=== PATIENT | male | born 1985 | race Caucasian/White ===

== ENCOUNTER 2023-10-20 14:33 | Inpatient (IN) | payer OTHER ==
[2023-10-20 15:05] VITALS: BMI 42.8
[2023-10-20] MEDS ORDERED: NALOXONE HCL (KLOXXADO) 8 MG SPRAY NS PRN (15:30)
[2023-10-20] MEDS ORDERED: COLLOIDAL OATMEAL 1 BAR EACH TP PRN (15:30)
[2023-10-20] MEDS ORDERED: MAG HYDROX/AL HYDROX/SIMETH 30 ML UNIT-DOSE CUP PO PRN (15:30)
[2023-10-20] MEDS ORDERED: IBUPROFEN 600 MG TABLET (FP) PO PRN (15:30)
[2023-10-20] MEDS ORDERED: IBUPROFEN 400 MG TABLET (FP) PO PRN (15:30)
[2023-10-20] MEDS ORDERED: BENZOCAINE/MENTHOL (CHLORASEPTIC ) LOZENGE MM PRN (15:30)
[2023-10-20] MEDS ORDERED: POLYETHYLENE GLYCOL (HEALTHYLAX) 3350 17 GM PACKET PO PRN (15:30)
[2023-10-20] MEDS ORDERED: ACETAMINOPHEN 325 MG TABLET (FP) PO PRN (15:30)
[2023-10-20] MEDS ORDERED: LOPERAMIDE HCL 2 MG CAPSULE PO PRN (15:30)
[2023-10-20] MEDS ORDERED: guaiFENesin 600 MG TABLET.ER (FP) PO PRN (15:30)
[2023-10-20] MEDS ORDERED: hydrOXYzine PAMOATE 25 MG CAPSULE (FP) PO PRN (15:30)
[2023-10-20] MEDS ORDERED: NALOXONE HCL 0.4 MG/ML VIAL IM PRN (15:30)
[2023-10-20] MEDS ORDERED: MAGNESIUM HYDROX 2400MG/30ML ORAL SUSPENSION 30 ML CUP PO PRN (15:30)
[2023-10-20] MEDS ORDERED: BENZONATATE 200 MG CAPSULE PO PRN (15:30)
[2023-10-20] MEDS ORDERED: PRENATAL VITAMINS W/ FOLIC ACID TABLET (FP) PO ONE (17:30)
[2023-10-20] MEDS: PRENATAL VITAMINS W/ FOLIC ACID TABLET (FP) PO SCH (17:35)
[2023-10-20] MEDS: NICOTINE 7 MG/24 HOURS TOPICAL PATCH TD SCH (17:35)
[2023-10-20] MEDS ORDERED: TUBERCULIN PPD 5 TU/0.1ML SYRINGE (IN PATIENT USE ONLY) ID ONE (19:33)
[2023-10-20] MEDS ORDERED: TUBERCULIN PPD 5 TU/0.1ML VIAL ID ONE (21:05)
[2023-10-20] MEDS: MELATONIN 5 MG TABLETS PO SCH (21:30)
[2023-10-20] MEDS: THIAMINE HCL 100 MG TABLET (FP) PO SCH (21:30)
[2023-10-21] MEDS ORDERED: INSULIN (NOVOLOG) ASPART 100 UNITS/ML 10ML VIAL SQ ONE ×2 (07:38→08:15)
[2023-10-21] MEDS ORDERED: INSULIN (NOVOLOG) ASPART 100 UNITS/ML 10ML VIAL ONE ×5 (07:51→20:59)
[2023-10-21 08:28] LABS: HEMATOCRIT 40.9 % (35.4-49); HEMOGLOBIN 13.7 GM/dL (11.7-16.9); MCH 29.7 pg (25.7-33.7); MCHC 33.5 g/dl (32.0-35.9); MEAN CELL VOLUME 88.6 fl (80-96); MEAN PLT VOLUME 9.1 fl (7.5-11.1); PLATELET COUNT 285 10^3/uL (134-434); RBC 4.61 M/mm3 (4.00-5.60); RDW 13.4 % (11.9-15.9); WHITE BLOOD COUNT 9.3 K/mm3 (4.0-10.0)
[2023-10-21 08:29] LABS: CHLORIDE 100 mmol/L (98-107); SODIUM 135 mmol/L (136-145)
[2023-10-21 08:36] LABS: ALBUMIN 3.1 g/dl (3.4-5.0); CALCIUM 8.7 mg/dL (8.5-10.1)
[2023-10-21 08:37] LABS: ANION GAP 9 mmol/L (4-13); BLOOD UREA NITROGEN 9.7 mg/dL (7-18); CO2 25 mmol/L (21-32)
[2023-10-21 08:40] LABS: SGOT/AST 34 U/L (15-37); SGPT/ALT 46 U/L (13-61)
[2023-10-21 08:41] LABS: BILIRUBIN,TOTAL 0.3 mg/dL (0.2-1); TOT PROT 6.7 g/dl (6.4-8.2)
[2023-10-21 08:43] LABS: ALK PHOS 101 U/L (45-117); GLUCOSE,RANDOM 489 mg/dL (74-106)
[2023-10-21] MEDS ORDERED: INSULIN ASPART SLIDING SCALE (NOVOLOG) 1 VIAL SQ ONE (09:44)
[2023-10-21] MEDS ORDERED: PANTOPRAZOLE 20 MG TABLET PO SCH (10:30)
[2023-10-21 11:23] LABS: SYPHILIS W/ RPR CONF NON-REACTIVE (NONREACTIVE)
[2023-10-21] MEDS ORDERED: fluPHENAZine DECANOATE 125 MG/5ML VIAL IM ONE (11:45)
[2023-10-21] MEDS: NICOTINE 7 MG/24 HOURS TOPICAL PATCH TD SCH (12:02)
[2023-10-21] MEDS: metFORMIN HCL 500 MG TABLET (FP) PO SCH ×2 (12:06→17:45)
[2023-10-21] MEDS: PANTOPRAZOLE 40 MG TABLET PO SCH ×2 (12:06→21:01)
[2023-10-21] MEDS: PRENATAL VITAMINS W/ FOLIC ACID TABLET (FP) PO SCH (12:07)
[2023-10-21] MEDS: INSULIN ASPART SLIDING SCALE (NOVOLOG) 1 VIAL SQ SCH ×3 (12:09→21:00)
[2023-10-21] MEDS: THIAMINE HCL 100 MG TABLET (FP) PO SCH (21:01)
[2023-10-21] MEDS: ATORVASTATIN CA 20 MG TABLET (FP) PO SCH (21:03)
[2023-10-21] MEDS: BENZTROPINE MESYLATE 1 MG TABLET PO SCH (21:03)
[2023-10-21] MEDS: MIRTAZAPINE 15 MG TABLET (FP) PO SCH (21:03)
[2023-10-21] MEDS: MELATONIN 5 MG TABLETS PO SCH (21:04)
[2023-10-22] MEDS: INSULIN ASPART SLIDING SCALE (NOVOLOG) 1 VIAL SQ SCH ×4 (07:11→21:14)
[2023-10-22] MEDS: LEVOTHYROXINE NA 25 MCG TABLET (FP) PO SCH (07:12)
[2023-10-22] MEDS ORDERED: INSULIN (NOVOLOG) ASPART 100 UNITS/ML 10ML VIAL ONE ×4 (07:12→21:14)
[2023-10-22] MEDS: metFORMIN HCL 500 MG TABLET (FP) PO SCH ×2 (07:12→16:55)
[2023-10-22] MEDS: PRENATAL VITAMINS W/ FOLIC ACID TABLET (FP) PO SCH (10:08)
[2023-10-22] MEDS: PANTOPRAZOLE 40 MG TABLET PO SCH ×2 (10:08→21:16)
[2023-10-22] MEDS: CHOLECALCIFEROL (VIT D3) 1,000 UNIT (25 MCG) TABLET PO SCH (10:09)
[2023-10-22] MEDS: FLUoxetine HCL 20 MG CAPSULE PO SCH (10:09)
[2023-10-22] MEDS: NICOTINE 7 MG/24 HOURS TOPICAL PATCH TD SCH (10:13)
[2023-10-22] MEDS: ATORVASTATIN CA 20 MG TABLET (FP) PO SCH (21:15)
[2023-10-22] MEDS: MELATONIN 5 MG TABLETS PO SCH (21:15)
[2023-10-22] MEDS: BENZTROPINE MESYLATE 1 MG TABLET PO SCH (21:16)
[2023-10-22] MEDS: MIRTAZAPINE 15 MG TABLET (FP) PO SCH (21:16)
[2023-10-22] MEDS: THIAMINE HCL 100 MG TABLET (FP) PO SCH (21:16)
[2023-10-23] MEDS: metFORMIN HCL 500 MG TABLET (FP) PO SCH ×2 (08:00→16:31)
[2023-10-23] MEDS: LEVOTHYROXINE NA 25 MCG TABLET (FP) PO SCH (08:00)
[2023-10-23] MEDS: glipiZIDE 5 MG TABLET (FP) PO SCH (08:00)
[2023-10-23] MEDS ORDERED: INSULIN (NOVOLOG) ASPART 100 UNITS/ML 10ML VIAL ONE ×3 (08:04→16:31)
[2023-10-23] MEDS: INSULIN ASPART SLIDING SCALE (NOVOLOG) 1 VIAL SQ SCH ×4 (08:06→21:18)
[2023-10-23] MEDS: PANTOPRAZOLE 40 MG TABLET PO SCH ×2 (09:37→21:15)
[2023-10-23] MEDS: CHOLECALCIFEROL (VIT D3) 1,000 UNIT (25 MCG) TABLET PO SCH (09:37)
[2023-10-23] MEDS: FLUoxetine HCL 20 MG CAPSULE PO SCH (09:37)
[2023-10-23] MEDS: PRENATAL VITAMINS W/ FOLIC ACID TABLET (FP) PO SCH (09:37)
[2023-10-23] MEDS: NICOTINE 7 MG/24 HOURS TOPICAL PATCH TD SCH (09:38)
[2023-10-23] MEDS: MELATONIN 5 MG TABLETS PO SCH (21:14)
[2023-10-23] MEDS: THIAMINE HCL 100 MG TABLET (FP) PO SCH (21:14)
[2023-10-23] MEDS: BENZTROPINE MESYLATE 1 MG TABLET PO SCH (21:14)
[2023-10-23] MEDS: MIRTAZAPINE 15 MG TABLET (FP) PO SCH (21:15)
[2023-10-23] MEDS: ATORVASTATIN CA 20 MG TABLET (FP) PO SCH (21:15)
[2023-10-24] MEDS: glipiZIDE 5 MG TABLET (FP) PO SCH (06:44)
[2023-10-24] MEDS: LEVOTHYROXINE NA 25 MCG TABLET (FP) PO SCH (06:44)
[2023-10-24] MEDS: metFORMIN HCL 500 MG TABLET (FP) PO SCH ×2 (06:44→16:23)
[2023-10-24] MEDS ORDERED: INSULIN (NOVOLOG) ASPART 100 UNITS/ML 10ML VIAL ONE ×3 (07:56→16:20)
[2023-10-24] MEDS: INSULIN ASPART SLIDING SCALE (NOVOLOG) 1 VIAL SQ SCH ×4 (08:05→21:19)
[2023-10-24] MEDS: PRENATAL VITAMINS W/ FOLIC ACID TABLET (FP) PO SCH (10:11)
[2023-10-24] MEDS: CHOLECALCIFEROL (VIT D3) 400 UNIT (10 MCG) TABLET PO SCH (10:11)
[2023-10-24] MEDS: PANTOPRAZOLE 40 MG TABLET PO SCH ×2 (10:11→21:16)
[2023-10-24] MEDS: NICOTINE 7 MG/24 HOURS TOPICAL PATCH TD SCH (10:12)
[2023-10-24] MEDS: FLUoxetine HCL 20 MG CAPSULE PO SCH (10:12)
[2023-10-24] MEDS: BENZTROPINE MESYLATE 1 MG TABLET PO SCH (21:16)
[2023-10-24] MEDS: MELATONIN 5 MG TABLETS PO SCH (21:16)
[2023-10-24] MEDS: THIAMINE HCL 100 MG TABLET (FP) PO SCH (21:16)
[2023-10-24] MEDS: ATORVASTATIN CA 20 MG TABLET (FP) PO SCH (21:17)
[2023-10-24] MEDS: MIRTAZAPINE 15 MG TABLET (FP) PO SCH (21:19)
[2023-10-25] MEDS: glipiZIDE 5 MG TABLET (FP) PO SCH (07:39)
[2023-10-25] MEDS: LEVOTHYROXINE NA 25 MCG TABLET (FP) PO SCH (07:39)
[2023-10-25] MEDS: metFORMIN HCL 500 MG TABLET (FP) PO SCH ×2 (07:39→16:54)
[2023-10-25] MEDS: INSULIN ASPART SLIDING SCALE (NOVOLOG) 1 VIAL SQ SCH ×4 (07:40→21:05)
[2023-10-25] MEDS ORDERED: INSULIN (NOVOLOG) ASPART 100 UNITS/ML 10ML VIAL ONE ×4 (07:41→21:06)
[2023-10-25] MEDS: FLUoxetine HCL 20 MG CAPSULE PO SCH (09:52)
[2023-10-25] MEDS: NICOTINE 7 MG/24 HOURS TOPICAL PATCH TD SCH (09:52)
[2023-10-25] MEDS: PRENATAL VITAMINS W/ FOLIC ACID TABLET (FP) PO SCH (09:52)
[2023-10-25] MEDS: PANTOPRAZOLE 40 MG TABLET PO SCH ×2 (09:52→21:04)
[2023-10-25] MEDS: CHOLECALCIFEROL (VIT D3) 400 UNIT (10 MCG) TABLET PO SCH (09:56)
[2023-10-25] MEDS ORDERED: NICOTINE 7 MG/24 HOURS TOPICAL PATCH TD PRN (10:47)
[2023-10-25 15:37] LABS: URINE APPEARANCE CLEAR; URINE BILIRUBIN NEGATIVE (NEGATIVE); URINE COLOR YELLOW; URINE GLUCOSE (UA) 2+ (NEGATIVE); URINE KETONE TRACE (NEGATIVE); URINE LEUK ESTERASE NEGATIVE (NEGATIVE); URINE NITRITE NEGATIVE (NEGATIVE); URINE PROTEIN NEGATIVE (NEGATIVE)
[2023-10-25] MEDS: BENZTROPINE MESYLATE 1 MG TABLET PO SCH (21:04)
[2023-10-25] MEDS: MIRTAZAPINE 15 MG TABLET (FP) PO SCH (21:04)
[2023-10-25] MEDS: THIAMINE HCL 100 MG TABLET (FP) PO SCH (21:04)
[2023-10-25] MEDS: ATORVASTATIN CA 20 MG TABLET (FP) PO SCH (21:05)
[2023-10-25] MEDS: MELATONIN 5 MG TABLETS PO SCH (21:38)
[2023-10-26] MEDS: glipiZIDE 5 MG TABLET (FP) PO SCH (06:21)
[2023-10-26] MEDS: LEVOTHYROXINE NA 25 MCG TABLET (FP) PO SCH (06:21)
[2023-10-26] MEDS: metFORMIN HCL 500 MG TABLET (FP) PO SCH ×2 (06:21→16:48)
[2023-10-26] MEDS: INSULIN ASPART SLIDING SCALE (NOVOLOG) 1 VIAL SQ SCH ×4 (06:22→21:17)
[2023-10-26] MEDS ORDERED: INSULIN (NOVOLOG) ASPART 100 UNITS/ML 10ML VIAL ONE ×4 (06:22→23:26)
[2023-10-26] MEDS: PANTOPRAZOLE 40 MG TABLET PO SCH ×2 (09:40→21:18)
[2023-10-26] MEDS: CHOLECALCIFEROL (VIT D3) 400 UNIT (10 MCG) TABLET PO SCH (09:40)
[2023-10-26] MEDS: FLUoxetine HCL 20 MG CAPSULE PO SCH (09:40)
[2023-10-26] MEDS: PRENATAL VITAMINS W/ FOLIC ACID TABLET (FP) PO SCH (09:40)
[2023-10-26] MEDS: MELATONIN 5 MG TABLETS PO SCH (21:16)
[2023-10-26] MEDS: ATORVASTATIN CA 20 MG TABLET (FP) PO SCH (21:18)
[2023-10-26] MEDS: BENZTROPINE MESYLATE 1 MG TABLET PO SCH (21:18)
[2023-10-26] MEDS: MIRTAZAPINE 15 MG TABLET (FP) PO SCH (21:18)
[2023-10-26] MEDS: THIAMINE HCL 100 MG TABLET (FP) PO SCH (21:19)
[2023-10-27] MEDS: metFORMIN HCL 500 MG TABLET (FP) PO SCH ×2 (07:43→16:27)
[2023-10-27] MEDS: glipiZIDE 5 MG TABLET (FP) PO SCH (07:43)
[2023-10-27] MEDS: LEVOTHYROXINE NA 25 MCG TABLET (FP) PO SCH (07:43)
[2023-10-27] MEDS: INSULIN ASPART SLIDING SCALE (NOVOLOG) 1 VIAL SQ SCH ×4 (07:44→21:20)
[2023-10-27] MEDS ORDERED: INSULIN (NOVOLOG) ASPART 100 UNITS/ML 10ML VIAL ONE ×4 (07:44→22:58)
[2023-10-27] MEDS: PRENATAL VITAMINS W/ FOLIC ACID TABLET (FP) PO SCH (10:22)
[2023-10-27] MEDS: PANTOPRAZOLE 40 MG TABLET PO SCH ×2 (10:22→21:17)
[2023-10-27] MEDS: FLUoxetine HCL 20 MG CAPSULE PO SCH (10:22)
[2023-10-27] MEDS: CHOLECALCIFEROL (VIT D3) 400 UNIT (10 MCG) TABLET PO SCH (12:01)
[2023-10-27] MEDS: MELATONIN 5 MG TABLETS PO SCH (21:17)
[2023-10-27] MEDS: ATORVASTATIN CA 20 MG TABLET (FP) PO SCH (21:17)
[2023-10-27] MEDS: MIRTAZAPINE 15 MG TABLET (FP) PO SCH (21:17)
[2023-10-27] MEDS: THIAMINE HCL 100 MG TABLET (FP) PO SCH (21:17)
[2023-10-27] MEDS: BENZTROPINE MESYLATE 1 MG TABLET PO SCH (21:17)
[2023-10-28] MEDS: LEVOTHYROXINE NA 25 MCG TABLET (FP) PO SCH (06:37)
[2023-10-28] MEDS: metFORMIN HCL 500 MG TABLET (FP) PO SCH ×2 (06:37→16:48)
[2023-10-28] MEDS: glipiZIDE 5 MG TABLET (FP) PO SCH (06:37)
[2023-10-28] MEDS: INSULIN ASPART SLIDING SCALE (NOVOLOG) 1 VIAL SQ SCH ×4 (07:58→21:25)
[2023-10-28] MEDS ORDERED: INSULIN (NOVOLOG) ASPART 100 UNITS/ML 10ML VIAL ONE ×3 (08:04→23:35)
[2023-10-28] MEDS: PANTOPRAZOLE 40 MG TABLET PO SCH ×2 (09:56→21:23)
[2023-10-28] MEDS: PRENATAL VITAMINS W/ FOLIC ACID TABLET (FP) PO SCH (09:57)
[2023-10-28] MEDS: CHOLECALCIFEROL (VIT D3) 400 UNIT (10 MCG) TABLET PO SCH (09:57)
[2023-10-28] MEDS: FLUoxetine HCL 20 MG CAPSULE PO SCH (09:57)
[2023-10-28] MEDS: BENZTROPINE MESYLATE 1 MG TABLET PO SCH (21:23)
[2023-10-28] MEDS: ATORVASTATIN CA 20 MG TABLET (FP) PO SCH (21:23)
[2023-10-28] MEDS: THIAMINE HCL 100 MG TABLET (FP) PO SCH (21:23)
[2023-10-28] MEDS: MELATONIN 5 MG TABLETS PO SCH (21:23)
[2023-10-28] MEDS: MIRTAZAPINE 15 MG TABLET (FP) PO SCH (21:23)
[2023-10-29] MEDS: glipiZIDE 5 MG TABLET (FP) PO SCH (06:50)
[2023-10-29] MEDS: LEVOTHYROXINE NA 25 MCG TABLET (FP) PO SCH (06:50)
[2023-10-29] MEDS: metFORMIN HCL 500 MG TABLET (FP) PO SCH ×2 (06:50→17:09)
[2023-10-29] MEDS: INSULIN ASPART SLIDING SCALE (NOVOLOG) 1 VIAL SQ SCH ×4 (07:50→21:39)
[2023-10-29] MEDS ORDERED: INSULIN (NOVOLOG) ASPART 100 UNITS/ML 10ML VIAL ONE ×2 (07:55→11:57)
[2023-10-29] MEDS: PRENATAL VITAMINS W/ FOLIC ACID TABLET (FP) PO SCH (09:56)
[2023-10-29] MEDS: CHOLECALCIFEROL (VIT D3) 400 UNIT (10 MCG) TABLET PO SCH (09:56)
[2023-10-29] MEDS: PANTOPRAZOLE 40 MG TABLET PO SCH ×2 (09:56→21:39)
[2023-10-29] MEDS: FLUoxetine HCL 20 MG CAPSULE PO SCH (09:57)
[2023-10-29] MEDS: MELATONIN 5 MG TABLETS PO SCH (21:38)
[2023-10-29] MEDS: THIAMINE HCL 100 MG TABLET (FP) PO SCH (21:38)
[2023-10-29] MEDS: MIRTAZAPINE 15 MG TABLET (FP) PO SCH (21:39)
[2023-10-29] MEDS: ATORVASTATIN CA 20 MG TABLET (FP) PO SCH (21:39)
[2023-10-29] MEDS: BENZTROPINE MESYLATE 1 MG TABLET PO SCH (21:39)
[2023-10-30] MEDS: metFORMIN HCL 500 MG TABLET (FP) PO SCH ×2 (06:35→17:23)
[2023-10-30] MEDS: LEVOTHYROXINE NA 25 MCG TABLET (FP) PO SCH (06:35)
[2023-10-30] MEDS: glipiZIDE 5 MG TABLET (FP) PO SCH (06:35)
[2023-10-30] MEDS: INSULIN ASPART SLIDING SCALE (NOVOLOG) 1 VIAL SQ SCH ×4 (08:08→21:57)
[2023-10-30] MEDS: CHOLECALCIFEROL (VIT D3) 400 UNIT (10 MCG) TABLET PO SCH (09:39)
[2023-10-30] MEDS: FLUoxetine HCL 20 MG CAPSULE PO SCH (09:40)
[2023-10-30] MEDS: PANTOPRAZOLE 40 MG TABLET PO SCH ×2 (09:40→21:52)
[2023-10-30] MEDS: PRENATAL VITAMINS W/ FOLIC ACID TABLET (FP) PO SCH (09:40)
[2023-10-30] MEDS: BENZTROPINE MESYLATE 1 MG TABLET PO SCH (21:51)
[2023-10-30] MEDS: MELATONIN 5 MG TABLETS PO SCH (21:52)
[2023-10-30] MEDS: ATORVASTATIN CA 20 MG TABLET (FP) PO SCH (21:52)
[2023-10-30] MEDS: THIAMINE HCL 100 MG TABLET (FP) PO SCH (21:52)
[2023-10-30] MEDS: MIRTAZAPINE 15 MG TABLET (FP) PO SCH (21:52)
[2023-10-31] MEDS ORDERED: INSULIN (NOVOLOG) ASPART 100 UNITS/ML 10ML VIAL ONE ×4 (06:36→21:39)
[2023-10-31] MEDS: INSULIN ASPART SLIDING SCALE (NOVOLOG) 1 VIAL SQ SCH ×4 (06:36→21:35)
[2023-10-31] MEDS: metFORMIN HCL 500 MG TABLET (FP) PO SCH ×2 (06:37→16:27)
[2023-10-31] MEDS: LEVOTHYROXINE NA 25 MCG TABLET (FP) PO SCH (06:37)
[2023-10-31] MEDS: glipiZIDE 5 MG TABLET (FP) PO SCH (07:02)
[2023-10-31] MEDS: PRENATAL VITAMINS W/ FOLIC ACID TABLET (FP) PO SCH (10:30)
[2023-10-31] MEDS: CHOLECALCIFEROL (VIT D3) 400 UNIT (10 MCG) TABLET PO SCH (10:30)
[2023-10-31] MEDS: PANTOPRAZOLE 40 MG TABLET PO SCH ×2 (10:30→21:33)
[2023-10-31] MEDS: FLUoxetine HCL 20 MG CAPSULE PO SCH (11:34)
[2023-10-31] MEDS: MELATONIN 5 MG TABLETS PO SCH (21:32)
[2023-10-31] MEDS: THIAMINE HCL 100 MG TABLET (FP) PO SCH (21:32)
[2023-10-31] MEDS: MIRTAZAPINE 15 MG TABLET (FP) PO SCH (21:33)
[2023-10-31] MEDS: ATORVASTATIN CA 20 MG TABLET (FP) PO SCH (21:33)
[2023-10-31] MEDS: BENZTROPINE MESYLATE 1 MG TABLET PO SCH (21:33)
[2023-11-01] MEDS: INSULIN ASPART SLIDING SCALE (NOVOLOG) 1 VIAL SQ SCH ×4 (06:23→21:11)
[2023-11-01] MEDS: LEVOTHYROXINE NA 25 MCG TABLET (FP) PO SCH (06:24)
[2023-11-01] MEDS ORDERED: INSULIN (NOVOLOG) ASPART 100 UNITS/ML 10ML VIAL ONE ×4 (06:24→16:23)
[2023-11-01] MEDS: metFORMIN HCL 500 MG TABLET (FP) PO SCH ×2 (06:24→16:25)
[2023-11-01] MEDS: glipiZIDE 5 MG TABLET (FP) PO SCH (08:00)
[2023-11-01] MEDS: FLUoxetine HCL 20 MG CAPSULE PO SCH (09:47)
[2023-11-01] MEDS: CHOLECALCIFEROL (VIT D3) 400 UNIT (10 MCG) TABLET PO SCH (09:47)
[2023-11-01] MEDS: PRENATAL VITAMINS W/ FOLIC ACID TABLET (FP) PO SCH (09:47)
[2023-11-01] MEDS: PANTOPRAZOLE 40 MG TABLET PO SCH ×2 (09:47→21:09)
[2023-11-01] MEDS: THIAMINE HCL 100 MG TABLET (FP) PO SCH (21:08)
[2023-11-01] MEDS: MELATONIN 5 MG TABLETS PO SCH (21:08)
[2023-11-01] MEDS: ATORVASTATIN CA 20 MG TABLET (FP) PO SCH (21:09)
[2023-11-01] MEDS: BENZTROPINE MESYLATE 1 MG TABLET PO SCH (21:09)
[2023-11-01] MEDS: MIRTAZAPINE 15 MG TABLET (FP) PO SCH (21:10)
[2023-11-02] MEDS: LEVOTHYROXINE NA 25 MCG TABLET (FP) PO SCH (06:17)
[2023-11-02] MEDS: INSULIN ASPART SLIDING SCALE (NOVOLOG) 1 VIAL SQ SCH ×4 (06:17→21:23)
[2023-11-02] MEDS: metFORMIN HCL 500 MG TABLET (FP) PO SCH ×2 (06:17→16:32)
[2023-11-02] MEDS: glipiZIDE 5 MG TABLET (FP) PO SCH (06:18)
[2023-11-02] MEDS ORDERED: INSULIN (NOVOLOG) ASPART 100 UNITS/ML 10ML VIAL ONE ×4 (06:26→23:02)
[2023-11-02] MEDS: FLUoxetine HCL 20 MG CAPSULE PO SCH (10:14)
[2023-11-02] MEDS: PANTOPRAZOLE 40 MG TABLET PO SCH ×2 (10:14→21:21)
[2023-11-02] MEDS: PRENATAL VITAMINS W/ FOLIC ACID TABLET (FP) PO SCH (10:14)
[2023-11-02] MEDS: CHOLECALCIFEROL (VIT D3) 400 UNIT (10 MCG) TABLET PO SCH (10:16)
[2023-11-02] MEDS: THIAMINE HCL 100 MG TABLET (FP) PO SCH (21:20)
[2023-11-02] MEDS: MELATONIN 5 MG TABLETS PO SCH (21:20)
[2023-11-02] MEDS: BENZTROPINE MESYLATE 1 MG TABLET PO SCH (21:21)
[2023-11-02] MEDS: ATORVASTATIN CA 20 MG TABLET (FP) PO SCH (21:21)
[2023-11-03] MEDS: INSULIN ASPART SLIDING SCALE (NOVOLOG) 1 VIAL SQ SCH ×4 (06:31→21:02)
[2023-11-03] MEDS: metFORMIN HCL 500 MG TABLET (FP) PO SCH ×2 (06:31→16:37)
[2023-11-03] MEDS: glipiZIDE 5 MG TABLET (FP) PO SCH (06:31)
[2023-11-03] MEDS ORDERED: INSULIN (NOVOLOG) ASPART 100 UNITS/ML 10ML VIAL ONE ×2 (06:31→16:35)
[2023-11-03] MEDS: LEVOTHYROXINE NA 25 MCG TABLET (FP) PO SCH (06:31)
[2023-11-03] MEDS: FLUoxetine HCL 20 MG CAPSULE PO SCH (10:02)
[2023-11-03] MEDS: PRENATAL VITAMINS W/ FOLIC ACID TABLET (FP) PO SCH (10:02)
[2023-11-03] MEDS: PANTOPRAZOLE 40 MG TABLET PO SCH ×2 (10:02→21:00)
[2023-11-03] MEDS: CHOLECALCIFEROL (VIT D3) 400 UNIT (10 MCG) TABLET PO SCH (10:02)
[2023-11-03] MEDS: THIAMINE HCL 100 MG TABLET (FP) PO SCH (20:59)
[2023-11-03] MEDS: MELATONIN 5 MG TABLETS PO SCH (20:59)
[2023-11-03] MEDS: ATORVASTATIN CA 20 MG TABLET (FP) PO SCH (21:00)
[2023-11-03] MEDS: BENZTROPINE MESYLATE 1 MG TABLET PO SCH (21:00)
[2023-11-04] MEDS: metFORMIN HCL 500 MG TABLET (FP) PO SCH ×2 (06:38→16:59)
[2023-11-04] MEDS: LEVOTHYROXINE NA 25 MCG TABLET (FP) PO SCH (06:38)
[2023-11-04] MEDS: glipiZIDE 5 MG TABLET (FP) PO SCH (06:38)
[2023-11-04] MEDS: INSULIN ASPART SLIDING SCALE (NOVOLOG) 1 VIAL SQ SCH ×4 (06:39→22:04)
[2023-11-04] MEDS ORDERED: INSULIN (NOVOLOG) ASPART 100 UNITS/ML 10ML VIAL ONE ×4 (07:31→22:46)
[2023-11-04] MEDS: PRENATAL VITAMINS W/ FOLIC ACID TABLET (FP) PO SCH (10:11)
[2023-11-04] MEDS: FLUoxetine HCL 20 MG CAPSULE PO SCH (10:11)
[2023-11-04] MEDS: CHOLECALCIFEROL (VIT D3) 400 UNIT (10 MCG) TABLET PO SCH (10:11)
[2023-11-04] MEDS: PANTOPRAZOLE 40 MG TABLET PO SCH ×2 (10:11→22:03)
[2023-11-04] MEDS: MELATONIN 5 MG TABLETS PO SCH (22:02)
[2023-11-04] MEDS: BENZTROPINE MESYLATE 1 MG TABLET PO SCH (22:03)
[2023-11-04] MEDS: THIAMINE HCL 100 MG TABLET (FP) PO SCH (22:03)
[2023-11-04] MEDS: ATORVASTATIN CA 20 MG TABLET (FP) PO SCH (22:03)
[2023-11-05] MEDS: LEVOTHYROXINE NA 25 MCG TABLET (FP) PO SCH (06:28)
[2023-11-05] MEDS: glipiZIDE 5 MG TABLET (FP) PO SCH (06:28)
[2023-11-05] MEDS: metFORMIN HCL 500 MG TABLET (FP) PO SCH ×2 (06:28→16:37)
[2023-11-05] MEDS: INSULIN ASPART SLIDING SCALE (NOVOLOG) 1 VIAL SQ SCH ×4 (06:29→21:28)
[2023-11-05] MEDS ORDERED: INSULIN (NOVOLOG) ASPART 100 UNITS/ML 10ML VIAL ONE ×2 (06:30→16:36)
[2023-11-05] MEDS: PRENATAL VITAMINS W/ FOLIC ACID TABLET (FP) PO SCH (09:54)
[2023-11-05] MEDS: CHOLECALCIFEROL (VIT D3) 400 UNIT (10 MCG) TABLET PO SCH (09:54)
[2023-11-05] MEDS: PANTOPRAZOLE 40 MG TABLET PO SCH ×2 (09:54→21:26)
[2023-11-05] MEDS: FLUoxetine HCL 20 MG CAPSULE PO SCH (09:54)
[2023-11-05] MEDS: MELATONIN 5 MG TABLETS PO SCH (21:26)
[2023-11-05] MEDS: BENZTROPINE MESYLATE 1 MG TABLET PO SCH (21:26)
[2023-11-05] MEDS: THIAMINE HCL 100 MG TABLET (FP) PO SCH (21:26)
[2023-11-05] MEDS: ATORVASTATIN CA 20 MG TABLET (FP) PO SCH (21:26)
[2023-11-06] MEDS ORDERED: INSULIN (NOVOLOG) ASPART 100 UNITS/ML 10ML VIAL ONE ×3 (06:23→16:46)
[2023-11-06] MEDS: INSULIN ASPART SLIDING SCALE (NOVOLOG) 1 VIAL SQ SCH ×4 (06:23→21:39)
[2023-11-06] MEDS: metFORMIN HCL 500 MG TABLET (FP) PO SCH ×2 (06:24→16:49)
[2023-11-06] MEDS: LEVOTHYROXINE NA 25 MCG TABLET (FP) PO SCH (06:24)
[2023-11-06] MEDS: glipiZIDE 5 MG TABLET (FP) PO SCH (06:24)
[2023-11-06] MEDS: PANTOPRAZOLE 40 MG TABLET PO SCH ×2 (09:57→21:39)
[2023-11-06] MEDS: CHOLECALCIFEROL (VIT D3) 400 UNIT (10 MCG) TABLET PO SCH (09:57)
[2023-11-06] MEDS: PRENATAL VITAMINS W/ FOLIC ACID TABLET (FP) PO SCH (09:57)
[2023-11-06] MEDS: FLUoxetine HCL 20 MG CAPSULE PO SCH (09:58)
[2023-11-06] MEDS: ATORVASTATIN CA 20 MG TABLET (FP) PO SCH (21:39)
[2023-11-06] MEDS: MELATONIN 5 MG TABLETS PO SCH (21:39)
[2023-11-06] MEDS: THIAMINE HCL 100 MG TABLET (FP) PO SCH (21:39)
[2023-11-06] MEDS: BENZTROPINE MESYLATE 1 MG TABLET PO SCH (21:39)
[2023-11-07 06:31] VITALS: RESP 16
[2023-11-07] MEDS ORDERED: INSULIN (NOVOLOG) ASPART 100 UNITS/ML 10ML VIAL ONE ×3 (07:13→21:39)
[2023-11-07] MEDS: LEVOTHYROXINE NA 25 MCG TABLET (FP) PO SCH (07:14)
[2023-11-07] MEDS: INSULIN ASPART SLIDING SCALE (NOVOLOG) 1 VIAL SQ SCH ×4 (07:14→21:19)
[2023-11-07] MEDS: glipiZIDE 5 MG TABLET (FP) PO SCH (07:14)
[2023-11-07] MEDS: metFORMIN HCL 500 MG TABLET (FP) PO SCH ×2 (07:15→16:35)
[2023-11-07] MEDS: PANTOPRAZOLE 40 MG TABLET PO SCH ×2 (10:13→21:17)
[2023-11-07] MEDS: PRENATAL VITAMINS W/ FOLIC ACID TABLET (FP) PO SCH (10:13)
[2023-11-07] MEDS: CHOLECALCIFEROL (VIT D3) 400 UNIT (10 MCG) TABLET PO SCH (10:13)
[2023-11-07] MEDS: FLUoxetine HCL 20 MG CAPSULE PO SCH (10:13)
[2023-11-07] MEDS: THIAMINE HCL 100 MG TABLET (FP) PO SCH (21:16)
[2023-11-07] MEDS: MELATONIN 5 MG TABLETS PO SCH (21:16)
[2023-11-07] MEDS: ATORVASTATIN CA 20 MG TABLET (FP) PO SCH (21:16)
[2023-11-07] MEDS: BENZTROPINE MESYLATE 1 MG TABLET PO SCH (21:16)
[2023-11-08] MEDS: metFORMIN HCL 500 MG TABLET (FP) PO SCH ×2 (06:20→17:11)
[2023-11-08] MEDS: LEVOTHYROXINE NA 25 MCG TABLET (FP) PO SCH (06:20)
[2023-11-08] MEDS: glipiZIDE 5 MG TABLET (FP) PO SCH (06:20)
[2023-11-08] MEDS ORDERED: INSULIN (NOVOLOG) ASPART 100 UNITS/ML 10ML VIAL ONE ×4 (06:25→20:33)
[2023-11-08] MEDS: INSULIN ASPART SLIDING SCALE (NOVOLOG) 1 VIAL SQ SCH ×4 (07:41→21:16)
[2023-11-08] MEDS: PRENATAL VITAMINS W/ FOLIC ACID TABLET (FP) PO SCH (09:32)
[2023-11-08] MEDS: FLUoxetine HCL 20 MG CAPSULE PO SCH (09:32)
[2023-11-08] MEDS: CHOLECALCIFEROL (VIT D3) 400 UNIT (10 MCG) TABLET PO SCH (09:33)
[2023-11-08] MEDS: PANTOPRAZOLE 40 MG TABLET PO SCH ×2 (09:33→21:16)
[2023-11-08] MEDS: BENZTROPINE MESYLATE 1 MG TABLET PO SCH (21:16)
[2023-11-08] MEDS: THIAMINE HCL 100 MG TABLET (FP) PO SCH (21:16)
[2023-11-08] MEDS: ATORVASTATIN CA 20 MG TABLET (FP) PO SCH (21:16)
[2023-11-08] MEDS: MELATONIN 5 MG TABLETS PO SCH (21:17)
[2023-11-09] MEDS ORDERED: INSULIN (NOVOLOG) ASPART 100 UNITS/ML 10ML VIAL ONE (03:59)
[2023-11-09] MEDS: metFORMIN HCL 500 MG TABLET (FP) PO SCH ×2 (06:37→16:38)
[2023-11-09] MEDS: glipiZIDE 5 MG TABLET (FP) PO SCH (06:37)
[2023-11-09] MEDS: LEVOTHYROXINE NA 25 MCG TABLET (FP) PO SCH (06:37)
[2023-11-09] MEDS: INSULIN ASPART SLIDING SCALE (NOVOLOG) 1 VIAL SQ SCH ×4 (07:26→21:07)
[2023-11-09] MEDS: CHOLECALCIFEROL (VIT D3) 400 UNIT (10 MCG) TABLET PO SCH (10:14)
[2023-11-09] MEDS: FLUoxetine HCL 20 MG CAPSULE PO SCH (10:14)
[2023-11-09] MEDS: PANTOPRAZOLE 40 MG TABLET PO SCH ×2 (10:14→21:06)
[2023-11-09] MEDS: PRENATAL VITAMINS W/ FOLIC ACID TABLET (FP) PO SCH (10:14)
[2023-11-09] MEDS: THIAMINE HCL 100 MG TABLET (FP) PO SCH (21:06)
[2023-11-09] MEDS: ATORVASTATIN CA 20 MG TABLET (FP) PO SCH (21:06)
[2023-11-09] MEDS: MELATONIN 5 MG TABLETS PO SCH (21:06)
[2023-11-09] MEDS: BENZTROPINE MESYLATE 1 MG TABLET PO SCH (21:06)
[2023-11-10] MEDS ORDERED: INSULIN (NOVOLOG) ASPART 100 UNITS/ML 10ML VIAL ONE (03:49)
[2023-11-10 06:39] VITALS: BP 138/90; PULSE 95; TEMP 98
[2023-11-10] MEDS: metFORMIN HCL 500 MG TABLET (FP) PO SCH (06:50)
[2023-11-10] MEDS: LEVOTHYROXINE NA 25 MCG TABLET (FP) PO SCH (06:50)
[2023-11-10] MEDS: glipiZIDE 5 MG TABLET (FP) PO SCH (06:50)
[2023-11-10] MEDS: INSULIN ASPART SLIDING SCALE (NOVOLOG) 1 VIAL SQ SCH (06:51)
[2023-11-10] MEDS: PRENATAL VITAMINS W/ FOLIC ACID TABLET (FP) PO SCH (09:03)
[2023-11-10] MEDS: CHOLECALCIFEROL (VIT D3) 400 UNIT (10 MCG) TABLET PO SCH (09:03)
[2023-11-10] MEDS: FLUoxetine HCL 20 MG CAPSULE PO SCH (09:04)
[2023-11-10] MEDS: PANTOPRAZOLE 40 MG TABLET PO SCH (09:04)
== END 2023-11-10 09:06 | disposition home or self-care (01) | DRG 772 ==
LOC: YASAS 14:33 → Y3E 19:36
PROVIDERS: ADMIT Allergy & Immunology; ATTEND Psychiatry & Neurology Pain Medicine
PROC: HZ42ZZZ Group Counseling for Substance Abuse Treatment, Cognitive-Behavioral (ICD-10-PCS; principal; 2023-10-20)
DX: F14.20 Cocaine dependence, uncomplicated (principal); F16.20 Hallucinogen dependence, uncomplicated; F17.210 Nicotine dependence, cigarettes, uncomplicated; F31.9 Bipolar disorder, unspecified; F19.282 Other psychoactive substance dependence with psychoactive substance-induced sleep disorder; E78.5 Hyperlipidemia, unspecified; E03.9 Hypothyroidism, unspecified; E11.9 Type 2 diabetes mellitus without complications; Z79.84 Long term (current) use of oral hypoglycemic drugs; K21.9 Gastro-esophageal reflux disease without esophagitis; M17.0 Bilateral primary osteoarthritis of knee; E66.01 Morbid (severe) obesity due to excess calories; Z68.41 Body mass index [BMI] 40.0-44.9, adult; Z88.0 Allergy status to penicillin
CPT/HCPCS: 36415; 80053; 80307; 81003; 82962; 85027; 86780; 86803; 87635; 87811; 93005; 93010